=== PATIENT | male | born 2000 | race African-American/Black ===

== ENCOUNTER 2018-08-06 16:32 | Emergency (ER) | payer SELFPAY ==
[2018-08-06 16:40] VITALS: BP 125/84
[2018-08-06] MEDS ORDERED: ONDANSETRON ODT 4 MG PO ONE (17:00)
[2018-08-06] MEDS ORDERED: ONDANSETRON ODT 4 MG ONE (17:10)
[2018-08-06 17:43] LABS: BASOPHILS # (AUTO) 0.05 x10^3/uL (0-0.3); BASOPHILS % (AUTO) 1 % (0-1); EOSINOPHILS # (AUTO) 0.01 x10^3/uL (0-0.8); EOSINOPHILS % (AUTO) 0 % (1-7); LYMPHOCYTES # (AUTO) 1.17 x10^3/uL (1-6.1); LYMPHOCYTES % (AUTO) 11 % (22-44); MD NO; MEAN CORPUSCULAR HEMOGLOBIN 30.7 pg (27.5-34.5); MEAN CORPUSCULAR HGB CONC 33.8 g/dL (33.2-36.2); MEAN CORPUSCULAR VOLUME 90.7 fL (81-97); MEAN PLATELET VOLUME 9.1 fL (7.4-10.4); MONOCYTES % (AUTO) 9 % (2-9); NEUTROPHILS % (AUTO) 80 % (42-75); PLATELET COUNT 228 x10^3/uL (130-400); RED BLOOD COUNT 5.25 x10^6/uL (4.38-5.82); RED CELL DISTRIBUTION WIDTH 13.4 % (9.4-14.8)
[2018-08-06 17:55] LABS: ALBUMIN 3.5 g/dL (3.4-5.0); ANION GAP 8 mmol/L (5-15); CALCIUM 9.2 mg/dL (8.5-10.1); CHLORIDE 104 mmol/L (98-107); CREATININE 1.11 mg/dL (0.7-1.3)
== END 2018-08-06 18:30 | disposition home or self-care (01) ==
LOC: ED 18:04
DX: G43.909 Migraine, unspecified, not intractable, without status migrainosus (principal); R05 Cough; R09.81 Nasal congestion
CPT/HCPCS: 36415; 70450; 71046; 80048; 82040; 85025; 99285; Q0162

== ENCOUNTER 2019-08-30 15:05 | Emergency (ER) | payer OTHER ==
[~2019-08-30] VITALS: Ht 180.3 cm; Wt 63.5 kg
[2019-08-30 15:15] VITALS: BP 109/67
[2019-08-30] MEDS ORDERED: IBUPROFEN 200 MG TABLET ONE (15:47)
[2019-08-30 15:50] LABS: RAPID INFLUENZA A Negative (Negative); RAPID INFLUENZA B POSITIVE (Negative)
[2019-08-30] MEDS ORDERED: IBUPROFEN 800 MG TABLET PO ONE (16:00)
--- NOTE | 2019-08-30 16:10 | NUR ---
DC EDUCATION PROVIDED, PT DEMONSTRATES UNDERSTANDING. PT AMBULATED STEADILY TO DC WITH RN AND FAMILY. FAMILY TO TRANSPORT PT HOME.
== END 2019-08-30 16:12 | disposition home or self-care (01) ==
LOC: ED 16:00
DX: J10.1 Influenza due to other identified influenza virus with other respiratory manifestations (principal); J31.0 Chronic rhinitis; F12.10 Cannabis abuse, uncomplicated; F17.200 Nicotine dependence, unspecified, uncomplicated; Z72.9 Problem related to lifestyle, unspecified; Z75.9 Unspecified problem related to medical facilities and other health care
CPT/HCPCS: 87081; 87400; 87880; 99283